=== PATIENT | male | born 1980 | race Caucasian/White ===

== ENCOUNTER → 2021-08-13 13:02 | Outpatient (BNVA) | payer OTHER, SELFPAY | PROVIDERS: PCP Family Medicine; Visit Provider Internal Medicine | DX: Z01.812 Encounter for preprocedural laboratory examination (principal); R10.13 Epigastric pain; Z20.822 Contact with and (suspected) exposure to COVID-19 | CPT/HCPCS: 87635 ==

== ENCOUNTER 2021-08-16 09:52 | Day surgery (SDC) | payer OTHER, SELFPAY ==
[2021-08-14 13:27] VITALS: BMI 26.6
--- NOTE | 2021-08-16 10:01 | ANES.PREANE2 ---
Pre-Anesthetic Assessment Pre-Anesthetic Assessment: Height/Weight: Height 1.73 m Weight 79.379 kg Preop Diagnosis: Abdominal pain Proposed Procedure: Operation Date: 08/16/21 11:30 Proposed Procedures p EGD/Colon 73719 R10.13(Not Applicable) - Tc Joseph MD s Colonoscopy 78398 R10.13(Not Applicable) - Tc Joseph MD Familial anesthetic complications: None Last intake: > 8 hrs Social: Social History: No alcohol and No tobacco Exam: Pre-Anes Outpt Exam: alert, oriented x 3, clear to auscultation bilaterally and regular rate & rhythm Airway: MP: 2 Dentition: Full Anesthetic Plan: ASA status: 1 Anesthesia: MAC Risk of > 500 ml blood loss (7ml/kg in children): No PFSH Anesthesia PFSH: Family History Grandfather Diabetes Grandmother Hypertension Data Anesthesia Cardiac Studies: No Data to Display
[2021-08-16 10:19] VITALS: BP 146/92; PULSE 115; RESP 16; TEMP 36.6; O2SAT 98
[2021-08-16] MEDS: sodium chloride 0.9% 1,000 ML 30 ML IV (10:31)
--- NOTE | 2021-08-16 11:39 | W.PM.OPSFHP ---
Same Day Surgery H&P Indication for Procedure/HPI DATE OF PROCEDURE: August 16, 2021 CHIEF COMPLAINT/INDICATIONFOR SURGICAL PROCEDURE: Abdominal pain PREOP DIAGNOSIS: Abdominal pain PLANNED PROCEDRUE: Operation Date: 08/16/21 11:30 Proposed Procedures p EGD/Colon 93469 R10.13(Not Applicable) - Tc Joseph MD s Colonoscopy 57191 R10.13(Not Applicable) - Tc Joseph MD Medications/Allergies* Home Medications Medication Instructions Recorded Confirmed Type levocetirizine 5 mg tablet 5 mg PO DAILY 07/01/21 08/16/21 History Allergies/Adverse Reactions Allergy/AdvReac Type Severity Reaction Status Date / Time No Known Allergies Allergy Verified 07/01/21 09:27 Current Medications: Generic Name Dose Route Start Last Admin Trade Name Freq PRN Reason Stop Dose Admin Sodium Chloride 1,000 mls @ 30 mls/hr 08/16/21 10:00 08/16/21 10:31 Sodium Chloride 0.9% IV 08/17/21 09:59 30 mls/hr .Q24H MARIBEL Administration Pertinent History/Comorbid Conditions* Family History (Updated 07/01/21 @ 09:37 by TRUNG Munoz) Diabetes Grandfather Hypertension Grandmother Pertinent Exam Findings alert, oriented x 3, clear to auscultation bilaterally, regular rate & rhythm, operative site marked and procedure specific exam findings Recommendations Surgery/Procedure today Coding Level of Care Code Acute [employer] Supervisor for Madelin Wayne
[2021-08-16 12:07] VITALS: BP 109/83; PULSE 92; RESP 16; TEMP 36.1; O2SAT 94
[2021-08-16 12:18] VITALS: BP 125/81; PULSE 86; RESP 16; O2SAT 96
--- NOTE | 2021-08-16 12:24 | ANE.PACU2 ---
Inpatient post-anesthesia follow up: Airway intact: Yes Vital signs: Temperature 97.0 F Pulse Rate 86 Respiratory Rate 16 Blood Pressure 125/81 Pulse Oximetry 96 Oxygen Delivery Me thod Room Air Oxygen Flow Rate Fraction of Inspir ed Oxygen Hydration adequate: Yes Nausea and vomiting: No Pain level: 1 Mental status: Baseline
[2021-08-19 06:33] LABS: H. Pylori / CLO Test Positive
== END 2021-08-16 13:12 | disposition home or self-care (01) ==
PROVIDERS: PCP Family Medicine; Visit Provider Internal Medicine
PROC: 0DJ08ZZ Inspection of Upper Intestinal Tract, Via Natural or Artificial Opening Endoscopic (ICD-10-PCS; CPT 43235; principal; 2021-08-16 11:30)
PROC: 0DJD8ZZ Inspection of Lower Intestinal Tract, Via Natural or Artificial Opening Endoscopic (ICD-10-PCS; CPT 45378; 2021-08-16 11:30)
DX: R10.84 Generalized abdominal pain (principal); R10.13 Epigastric pain
CPT/HCPCS: 87077; 88305; 96360; 96361; J2704; J7030